=== PATIENT | male | born 1995 | race Caucasian/White ===

== ENCOUNTER 2018-05-16 23:43 | Emergency (ER) | payer MEDICAID ==
[~2018-05-16] VITALS: Ht 182.9 cm; Wt 68.0 kg
[2018-05-16 23:50] VITALS: BP 122/86
--- NOTE | 2018-05-16 23:52 | Emergency Room Report ---
History of Present Illness General Chief Complaint: Alcohol Intoxication Source: Patient Present Illness HPI Is a 22-year-old male with a history of alcohol and polysubstance abuse. He was at a sober living place for last 2 weeks. He was kicked out because of an altercation with a staff member. Patient was brought in by EMS with police escort because he was acting abnormally. He was looking through cars on the street and someone called 911. Patient appear to be intoxicated. He admits to alcohol tonight and Suboxone. He tell EMS some Xanax. Patient denies suicidal thoughts or homicidal thought. Denies any other complaint. Allergies: Coded Allergies: UNABLE TO ASSESS (Unverified , 05/16/18) Patient History Past Medical History: see triage record, old chart reviewed Past Surgical History: other Pertinent Family History: none Social History: Reports: smoking, alcohol use, drug use Immunizations: other Reviewed Nursing Documentation: PMH: Agreed; PSxH: Agreed Nursing Documentation-PMH Past Medical History: No History, Except For Hx Neurological Problems: Yes - Anxiety Review of Systems Eye: Denies: eye pain, blurred vision ENT: Denies: ear pain, nose congestion, throat swelling Respiratory: Denies: cough, shortness of breath Cardiovascular: Denies: chest pain, palpitations Gastrointestinal: Denies: abdominal pain, diarrhea, nausea, vomiting Musculoskeletal: Denies: back pain, joint pain Skin: Denies: rash Neurological: Denies: headache, numbness Endocrine: Denies: increased thirst, increased urine Hematologic/Lymphatic: Denies: easy bruising All Other Systems: negative except mentioned in HPI Physical Exam Vital Signs Date Time Temp Pulse Resp B/P (MAP) Pulse Ox O2 Delivery O2 Flow Rate FiO2 05/16/18 23:43 98.2 100 16 122/86 99 Room Air 98.2 vitals normal Sp02 EP Interpretation: reviewed, normal General Appearance: well appearing, no apparent distress, alert, other - intoxicated Head: normocephalic, atraumatic Eyes: bilateral eye PERRL, bilateral eye EOMI ENT: hearing grossly normal, normal pharynx Neck: full range of motion, supple, no meningismus Respiratory: chest non-tender, lungs clear, normal breath sounds Cardiovascular #1: regular rate, rhythm, no murmur Gastrointestinal: normal bowel sounds, non tender, no mass, no organomegaly, no bruit, non-distended Musculoskeletal: back normal, normal range of motion, other - when he try to walk, he is stumbling Neurologic: alert, oriented x3 Psychiatric: other - Patient agitated. Trying to leave. Skin: warm/dry Medical Decision Making Diagnostic Impression: Primary Impression: Substance abuse ER Course Patient with substance abuse. He had to be sedated because he was aggressive and trying to leave. No evidence of any trauma. Patient slept in the night and felt better. We'll discharge home in the morning. Last Vital Signs Date Time Temp Pulse Resp B/P (MAP) Pulse Ox O2 Delivery O2 Flow Rate FiO2 05/16/18 23:43 98.2 100 16 122/86 99 Room Air 98.2 Status: improved Disposition: HOME, SELF-CARE Condition: Stable Additional Instructions: Follow-up with your Dr. in 7 days. Go to rehabilitation. Return if worse. All Kaba MD May 16, 2018 23:52
[2018-05-17] MEDS ORDERED: Haloperidol 5mg/ml Inj IM ONE (00:15)
[2018-05-17 00:48] LABS: HEMATOCRIT 44.5 % (42.0-52.0); HEMOGLOBIN 15.7 G/DL (14.2-18.0); LYMPHOCYTES % (AUTO) 38.7 % (20.0-45.0); MEAN CORPUSCULAR VOLUME 89 FL (80-99); MONOCYTES % (AUTO) 8.2 % (1.0-10.0); NEUTROPHILS % (AUTO) 51.1 % (45.0-75.0); PLATELET COUNT 197 K/UL (150-450); RED BLOOD COUNT 5.03 M/UL (4.70-6.10); RED CELL DISTRIBUTION WIDTH 11.1 % (11.6-14.8)
[2018-05-17 00:59] LABS: ANION GAP 13 mmol/L (5-15); BLOOD UREA NITROGEN 10 mg/dL (7-18); CALCIUM 9.2 MG/DL (8.5-10.1); CARBON DIOXIDE 25 MMOL/L (21-32); CHLORIDE 103 MMOL/L (98-107); CREATININE 1.1 MG/DL (0.55-1.30); POTASSIUM 3.5 MMOL/L (3.5-5.1); SODIUM 141 MMOL/L (136-145)
[2018-05-17 01:15] LABS: CKMB 0.8 NG/ML (0.0-3.6); CREATINE KINASE 130 U/L (26-308)
[2018-05-17 01:45] LABS: APPEARANCE,URINE CLEAR; BILIRUBIN, URINE NEGATIVE (NEGATIVE); GLUCOSE, URINE (UA) NEGATIVE (NEGATIVE); KETONES,URINE NEGATIVE (NEGATIVE); LEUKOCYTE ESTERASE ,URINE NEGATIVE (NEGATIVE); NITRITE,URINE NEGATIVE (NEGATIVE); PH,URINE 5 (4.5-8.0); PROTEIN,URINE NEGATIVE (NEGATIVE); UROBILINOGEN,URINE NORMAL MG/DL (0.0-1.0)
[2018-05-17 01:52] LABS: COLOR,URINE YELLOW
[2018-05-17 02:00] VITALS: BP 97/53
[2018-05-17 05:05] VITALS: BP 89/57
[2018-05-17 05:40] VITALS: BP 89/57
== END 2018-05-17 05:50 | disposition home or self-care (01) ==
LOC: EDBD 23:43 → EMR 23:57
DX: F19.10 Other psychoactive substance abuse, uncomplicated (principal)
CPT/HCPCS: 36415; 80048; 80307; 80329; 81001; 82550; 82553; 85025; 96360; 96372; 99284; J1630